=== PATIENT | female | born 1960 | race Asian ===

== ENCOUNTER 2016-12-05 12:36 | Outpatient (CLI) | payer OTHER ==
[2016-12-05] MEDS ORDERED: IOPAMIDOL-300 100 ML VIAL IVP ONE ×2 (13:58)
[2016-12-05] MEDS ORDERED: IOPAMIDOL-300 100 ML VIAL ONE (14:22)
[2016-12-05] MEDS ORDERED: IOPAMIDOL-300 50 ML VIAL ONE (14:22)
--- NOTE | 2016-12-06 15:51 | CT Report ---
EXAM: CT NECK WITH CONTRAST COMPARISON: Thyroid ultrasound, 09/02/2016. CLINICAL HISTORY: Neck mass, right-sided neck pain TECHNIQUE: Axial images were acquired through the neck after intravenous administration of iodinated contrast. Coronal and Sagittal reconstructions are created from source data. In accordance with CT protocol optimization, one or more of the following dose reduction techniques w ere utilized for this exam: automated exposure control, adjustment of mA and/or KV based on patient s ize, or use of iterative reconstructive technique. FINDINGS: Visualized right upper chest shows no pulmonary nodules or masses. No pneumothorax. Visualized left u pper chest shows no pulmonary nodules or masses. No pneumothorax. Visualized pulmonary arteries are unremarkable. Visualized upper mediastinum is unremarkable. There is cervical spondylosis, with facet arthropathy particularly notable involving the left C4-C5 f acet. No evident abnormality of the venous structures identified, no high-grade arterial stenosis is seen. Visualized intracranial contents are relatively unremarkable. Mastoids are clear. Paranasal sinuses a re clear. No evident parotid inflammation. No evidence of mandibular gland inflammation. Sternocleidomastoid mu scles are unremarkable. Thyroid gland is unremarkable. No discrete soft tissue mass identified. There are modest inflammatory findings in the soft tissues of the dorsal neck (3, 70), nonspecific, c linical correlation with possibility of evolving cellulitis is suggested. Impression: No discrete neck mass identified. There is cervical spondylosis, findings may be associated with pain. Mild subcutaneous inflammatory findings are present in the dorsal neck, at approximately the C6-C7 le naveed, may reflect an evolving cellulitis, clinical correlation suggested. May also represent soft tiss ue edema from positioning. Referring Provider Line: [phone] SITE ID: [id number]
== END 2016-12-05 12:37 | disposition home or self-care (01) ==
LOC: DI 12:36
PROVIDERS: ATTEND Otolaryngology
DX: M47.892 Other spondylosis, cervical region (principal)
CPT/HCPCS: 70491; Q9967